=== PATIENT | female | born 1965 | race Caucasian/White ===

== ENCOUNTER 2017-10-20 12:13 | Emergency (ER) | payer SELFPAY ==
[2017-10-20] MEDS ORDERED: SODIUM CHLORIDE 0.9% FLUSH 10 ML FLUSH IV FLUSH (13:00)
[2017-10-20] MEDS: SODIUM CHLOR 0.9% 1000 ML INJ 1,000 ML IV (13:43)
[2017-10-20 13:46] LABS: AUTOMATED NEUTROPHIL # 6.2 TH/MM3 (1.8-7.7); BASOPHIL # 0.1 TH/MM3 (0-0.2); BASOPHIL % 1.2 % (0.0-2.0); HEMATOCRIT 40.6 % (35.0-46.0); HEMOGLOBIN 13.8 GM/DL (11.6-15.3); LYMPH % 16.6 % (9.0-44.0); LYMPHOCYTE # 1.3 TH/MM3 (1.0-4.8); MEAN CELL VOLUME 96.2 FL (80.0-100.0); MEAN CORPUSCULAR HEMOGLOBIN 32.7 PG (27.0-34.0); MEAN CORPUSCULAR HGB CONC 33.9 % (32.0-36.0); MEAN PLATELET VOLUME 8.3 FL (7.0-11.0); MONO % 6.4 % (0.0-8.0); MONOCYTE # 0.5 TH/MM3 (0-0.9); NEUT % 75.8 % (16.0-70.0); PLATELET COUNT 179 TH/MM3 (150-450); RED BLOOD COUNT 4.22 MIL/MM3 (4.00-5.30); RED CELL DISTRIBUTION WIDTH 13.4 % (11.6-17.2); WHITE BLOOD COUNT 8.1 TH/MM3 (4.0-11.0)
[2017-10-20 13:49] LABS: HEMO FLAGS AUTO DIFF
[2017-10-20 14:02] LABS: CHLORIDE 109 MEQ/L (98-107); SODIUM (NA) 137 MEQ/L (136-145)
[2017-10-20 14:05] LABS: ALBUMIN 3.5 GM/DL (3.4-5.0); ANION GAP 6 MEQ/L (5-15); BICARBONATE 22.2 MEQ/L (21.0-32.0); CALCIUM 9.3 MG/DL (8.5-10.1); GLUCOSE,RANDOM 83 MG/DL (74-106); LIPASE 268 U/L (73-393)
[2017-10-20 14:06] LABS: BLOOD UREA NITROGEN 6 MG/DL (7-18)
[2017-10-20 14:08] LABS: ALT (GPT) 27 U/L (10-53); AST (GOT) 28 U/L (15-37); CREATININE 0.79 MG/DL (0.50-1.00); GLOMERULAR FILTRATION RATE 77 ML/MIN (>89)
[2017-10-20 14:10] LABS: TOTAL BILIRUBIN ADULT 0.4 MG/DL (0.2-1.0); TOTAL PROTEIN 7.3 GM/DL (6.4-8.2)
[2017-10-20 14:11] LABS: ALKALINE PHOSPHATASE 131 U/L (45-117)
[2017-10-20 14:13] LABS: PLATELET ESTIMATE SMEAR NORMAL (NORMAL); PLATELET MORPHOLOGY NORMAL (NORMAL); SCAN/DIFF AUTO DIFF CONFIRMED
[2017-10-20 15:05] LABS: LITHIUM 1.1 MEQ/L (0.5-1.5)
== END 2017-10-20 15:28 | disposition home or self-care (01) ==
LOC: PHED 12:13
DX: K52.9 Noninfective gastroenteritis and colitis, unspecified (principal); F20.9 Schizophrenia, unspecified; F31.9 Bipolar disorder, unspecified; F42.9 Obsessive-compulsive disorder, unspecified; F43.10 Post-traumatic stress disorder, unspecified; F90.9 Attention-deficit hyperactivity disorder, unspecified type; J45.909 Unspecified asthma, uncomplicated; F17.200 Nicotine dependence, unspecified, uncomplicated
CPT/HCPCS: 80053; 80178; 83690; 85025; 96360; 99284-25

== ENCOUNTER 2017-12-09 15:22 | Emergency (ER) | payer SELFPAY ==
[~2017-12-09] VITALS: Ht 165.1 cm; Wt 72.0 kg
[~2017-12-09 15:22] MED LIST: GABA100C4 PO; LITH150C PO; LOMO2.5T PO; TRAZ100T10 PO; VIST50CA PO
[2017-12-09 15:31] VITALS: BP 148/95; PULSE 99; RESP 19; TEMP 98.9; O2SAT 97
[2017-12-09] MEDS ORDERED: BUSP10TA PO (18:30)
[2017-12-09] MEDS ORDERED: HALO10TA PO (18:30)
[2017-12-09 18:31] VITALS: BP 171/93; PULSE 80; RESP 18; O2SAT 97
[2017-12-09] MEDS ORDERED: SODIUM CHLOR 0.9% 1000 ML INJ 1,000 ML IV SCH (18:48)
[2017-12-09] MEDS ORDERED: SODIUM CHLORIDE 0.9% FLUSH 10 ML FLUSH IV FLUSH PRN (19:00)
--- NOTE | 2017-12-09 19:14 | PD ---
HPI Chief Complaint: GI Complaint Time Seen by Provider: 18:35 Travel History International Travel<30 days: No Contact w/Intl Traveler<30days: No Traveled to known affect area: No History of Present Illness HPI 52-year-old female presents to the emergency department for evaluation of chronic diarrhea. She states she has been having diarrhea for the past year. If she takes Imodium, she will not have diarrhea. She states she took Imodium this morning has not had any episodes today. When asked what brought the patient to the emergency room today, she states that she had a ride. Patient was seen in October for the same thing. She was instructed to follow-up the [facility] or GI. She has not followed up outpatient. No fevers or chills. No chest pain or shortness breath. She reports associated abdominal cramping which she has had for the past year with her diarrhea. She reports history of psychiatric diagnoses and is on lithium as well as other psychiatric medications. No exacerbating factors. Alleviating factor is Imodium. Moderate severity. PFSH Past Medical History ADHD: Yes Asthma: Yes Bipolar Disorder: Yes Anxiety: Yes Depression: Yes Cancer: Yes (CERVICAL, , W LASER SURGERY.) Cardiovascular Problems: No Cerebrovascular Accident: No Diminished Hearing: No Musculoskeletal: Yes (RIGHT FX CLAVICLE 02/21) Psychiatric: Yes (PTSD, OCD) Reproductive: Yes (STATES NEEDS HYSTERECTOMY) Respiratory: No Immunizations Current: Yes Schizophrenia: Yes Tetanus Vaccination: < 5 Years Influenza Vaccination: No ?: Not Menopausal: Yes : 8 Para: 5 Miscarriage: 1 : 2 Ovarian Cysts: Yes Tubal Ligation: Yes Past Surgical History Gynecologic Surgery: Yes (TUBAL LIGATION ) Other Surgery: No Social History Alcohol Use: No (QUIT 2014) Tobacco Use: Yes (/2 PPD) Substance Use: No (HX ; MARIJUANA/ COCCAINE QUIT 2010) Allergies-Medications (Allergen,Severity, Reaction): Coded Allergies: No Known Allergies (Verified Adverse Reaction, Unknown, 12/09/17) Reported Meds & Prescriptions Reported Meds & Active Scripts Active Reported Haloperidol 10 Mg Tab 10 Mg PO TID Buspirone (Buspirone HCl) 10 Mg Tab Unknown Dose PO TID Gabapentin 100 Mg Cap 100 Mg PO BID Yoe Carbonate 150 Mg Cap 150 Mg PO QID Trazodone (Trazodone HCl) 100 Mg Tablet 100 Mg PO HS Review of Systems Except as stated in HPI: all other systems reviewed are Neg Physical Exam Narrative GENERAL: Well-nourished, well-developed female patient, ambulatory. Afebrile. SKIN: Focused skin assessment warm/dry. HEAD: Normocephalic. Atraumatic. EYES: No scleral icterus. No injection or drainage. NECK: Supple, trachea midline. No JVD or lymphadenopathy. CARDIOVASCULAR: Regular rate and rhythm without murmurs, gallops, or rubs. RESPIRATORY: Breath sounds equal bilaterally. No accessory muscle use. Lung sounds are clear to auscultation. GASTROINTESTINAL: Abdomen soft, non-tender, nondistended. No abdominal tenderness to palpation. MUSCULOSKELETAL: No cyanosis, or edema. BACK: Nontender without obvious deformity. No CVA tenderness. Data Data Last Documented VS Vital Signs Date Time Temp Pulse Resp B/P (MAP) Pulse Ox O2 Delivery O2 Flow Rate FiO2 12/09/17 20:42 77 20 144/78 (100) 98 12/09/17 18:31 Room Air 12/09/17 15:31 98.9 Orders Orders Complete Blood Count With Diff (12/09/17 18:48) Comprehensive Metabolic Panel (12/09/17 18:48) Lipase (12/09/17 18:48) Urinalysis - C+S If Indicated (12/09/17 18:48) Iv Access Insert/Monitor (12/09/17 18:48) Ecg Monitoring (12/09/17 18:48) Oximetry (12/09/17 18:48) Sodium Chlor 0.9% 1000 Ml Inj (Ns 1000 M (12/09/17 18:48) Sodium Chloride 0.9% Flush (Ns Flush) (12/09/17 19:00) Yoe (Li) (12/09/17 18:48) Labs Laboratory Tests Test 12/09/17 18:50 12/09/17 19:10 White Blood Count 6.8 TH/MM3 Red Blood Count 4.23 MIL/MM3 Hemoglobin 14.2 GM/DL Hematocrit 42.6 % Mean Corpuscular Volume 100.8 FL Mean Corpuscular Hemoglobin 33.6 PG Mean Corpuscular Hemoglobin Concent 33.3 % Red Cell Distribution Width 13.8 % Platelet Count 168 TH/MM3 Mean Platelet Volume 8.4 FL Neutrophils (%) (Auto) 62.5 % Lymphocytes (%) (Auto) 29.2 % Monocytes (%) (Auto) 7.9 % Eosinophils (%) (Auto) 0.0 % Basophils (%) (Auto) 0.4 % Neutrophils # (Auto) 4.3 TH/MM3 Lymphocytes # (Auto) 2.0 TH/MM3 Monocytes # (Auto) 0.5 TH/MM3 Eosinophils # (Auto) 0.0 TH/MM3 Basophils # (Auto) 0.0 TH/MM3 CBC Comment DIFF FINAL Differential Comment Blood Urea Nitrogen 4 MG/DL Creatinine 0.76 MG/DL Random Glucose 85 MG/DL Total Protein 7.6 GM/DL Albumin 3.9 GM/DL Calcium Level 9.3 MG/DL Alkaline Phosphatase 155 U/L Aspartate Amino Transf (AST/SGOT) 18 U/L Alanine Aminotransferase (ALT/SGPT) 22 U/L Total Bilirubin 0.3 MG/DL Sodium Level 138 MEQ/L Potassium Level 3.7 MEQ/L Chloride Level 109 MEQ/L Carbon Dioxide Level 20.9 MEQ/L Anion Gap 8 MEQ/L Estimat Glomerular Filtration Rate 80 ML/MIN Lipase 234 U/L Yoe Level 1.2 MEQ/L Urine Color Straw Urine Turbidity CLEAR Urine pH 6.0 Urine Specific [place] 1.001 Urine Protein NEG mg/dL Urine Glucose (UA) NEG mg/dL Urine Ketones NEG mg/dL Urine Occult Blood SMALL Urine Nitrite NEG Urine Bilirubin NEG Urine Urobilinogen LESS THAN 2 mg/dL Urine Leukocyte Esterase NEG Urine WBC 2 /hpf Urine Squamous Epithelial Cells <1 /hpf Urine Bacteria OCC /hpf Microscopic Urinalysis Comment CULT NOT INDICATED MDM Medical Decision Making Medical Screen Exam Complete: Yes Emergency Medical Condition: Yes Medical Record Reviewed: Yes Differential Diagnosis Chronic diarrhea versus electrolyte abnormality versus dehydration Narrative Course 52-year-old female presents to the emergency department for evaluation of chronic diarrhea for the past year. She appears well on exam. IV access obtained. CBC, CMP, lipase, lithium level, UA are ordered and pending. Patient is given normal saline 1 L IV bolus CBC shows no acute abnormality. CMP shows no acute abnormality. Lipase is 234. Yoe level is 1.2. UA is negative for acute infection Patient has been having this chronic diarrhea for a year. She has had no episodes today. Instructed continue Imodium as needed and follow-up the [facility]. She is to return for any acute worsening of symptoms. The patient was discharged in stable condition with instructions, including return instructions and follow up instructions. Diagnosis Primary Impression: Chronic diarrhea Referrals: [facility] call for appointment Patient Instructions: Chronic Diarrhea (ED), General Instructions Additional Instructions: Continue Imodium as directed as needed for diarrhea. Follow-up with the [facility] clinic. Return to the emergency department for any acute worsening of symptoms. Med/Other Pt SpecificInfo: No Change to Meds Disposition: 01 DISCHARGE HOME Condition: Stable Bharti Martin Dec 09, 2017 19:14
[2017-12-09 19:31] LABS: AUTOMATED NEUTROPHIL # 4.3 TH/MM3 (1.8-7.7); BASOPHIL % 0.4 % (0.0-2.0); HEMATOCRIT 42.6 % (35.0-46.0); HEMOGLOBIN 14.2 GM/DL (11.6-15.3); LYMPH % 29.2 % (9.0-44.0); MEAN CELL VOLUME 100.8 FL (80.0-100.0); MEAN CORPUSCULAR HEMOGLOBIN 33.6 PG (27.0-34.0); MEAN CORPUSCULAR HGB CONC 33.3 % (32.0-36.0); MEAN PLATELET VOLUME 8.4 FL (7.0-11.0); MONO % 7.9 % (0.0-8.0); MONOCYTE # 0.5 TH/MM3 (0-0.9); NEUT % 62.5 % (16.0-70.0); PLATELET COUNT 168 TH/MM3 (150-450); RED BLOOD COUNT 4.23 MIL/MM3 (4.00-5.30); RED CELL DISTRIBUTION WIDTH 13.8 % (11.6-17.2); WHITE BLOOD COUNT 6.8 TH/MM3 (4.0-11.0)
[2017-12-09 19:40] LABS: BACTERIA, URINE OCC /hpf; BILIRUBIN, URINE NEG (NEG); BLOOD, URINE SMALL (NEG); GLUCOSE,URINE NEG (NEG); KETONE, URINE NEG (NEG); NITRITE,URINE NEG (NEG); SQUAMOUS EPITHELIAL CELL URINE <1 /hpf (0-5); URINE COLOR Straw (YELLW/STRAW); URINE LEUKOCYTE ESTERASE NEG (NEG)
[2017-12-09 19:46] LABS: ALBUMIN 3.9 GM/DL (3.4-5.0); AST (GOT) 18 U/L (15-37); BICARBONATE 20.9 MEQ/L (21.0-32.0); BLOOD UREA NITROGEN 4 MG/DL (7-18); CALCIUM 9.3 MG/DL (8.5-10.1); CHLORIDE 109 MEQ/L (98-107); CREATININE 0.76 MG/DL (0.50-1.00); GLOMERULAR FILTRATION RATE 80 ML/MIN (>89); GLUCOSE,RANDOM 85 MG/DL (74-106); SODIUM (NA) 138 MEQ/L (136-145)
[2017-12-09 19:47] LABS: ALT (GPT) 22 U/L (10-53)
[2017-12-09 19:49] LABS: ALKALINE PHOSPHATASE 155 U/L (45-117); TOTAL BILIRUBIN ADULT 0.3 MG/DL (0.2-1.0); TOTAL PROTEIN 7.6 GM/DL (6.4-8.2)
[2017-12-09 20:42] VITALS: BP 144/78
== END 2017-12-09 21:38 | disposition home or self-care (01) ==
LOC: NEPE 15:22
DX: R19.7 Diarrhea, unspecified (principal); R10.9 Unspecified abdominal pain; F90.9 Attention-deficit hyperactivity disorder, unspecified type; F31.9 Bipolar disorder, unspecified; F41.8 Other specified anxiety disorders; F17.200 Nicotine dependence, unspecified, uncomplicated; Z85.41 Personal history of malignant neoplasm of cervix uteri; Z87.39 Personal history of other diseases of the musculoskeletal system and connective tissue
CPT/HCPCS: 80053; 80178; 81001; 83690; 85025; 96360; 99284; J7030